=== PATIENT | male | born 1965 | race Two or more races ===

== ENCOUNTER 2018-03-19 01:12 | Emergency (ER) | payer SELFPAY ==
--- NOTE | 2018-03-19 02:29 | ER Document Report ---
ED Substance Abuse / Acc. OD - General Chief Complaint: Accidental Overdose Stated Complaint: POSSIBLE OVERDOSE Time Seen by Provider: 03/19/18 02:21 Primary Care Provider: [facility] [Provider Group] - Follow up tomorrow Notes: Patient is a 53-year-old male that comes to the emergency department for chief complaint of accidental overdose. He states that he was trying to go to sleep, he states he drank almost the entire bottle of NyQuil at 8 PM, he states that he slept soundly with multiple nightmares, awoke and felt "very strange and groggy", states that he was very shaky and he became concerned and was brought to the emergency department. He states he actually feels improved now. He denies abdominal pain, vomiting, headache, seizure, or any other symptoms. TRAVEL OUTSIDE OF THE [place] IN LAST 30 DAYS: No - Related Data Allergies/Adverse Reactions: No Known Allergies Allergy (Unverified 03/19/18 03:40) Past Medical History - General Information source: Patient - Social History Smoking Status: Never Smoker Frequency of alcohol use: Social Drug Abuse: None Lives with: Friend Family History: Reviewed & Not Pertinent - Medical History Medical History: Negative Surgical Hx: Negative - Immunizations Hx Diphtheria, Pertussis, Tetanus Vaccination: Yes Review of Systems - Review of Systems Constitutional: See HPI EENT: No symptoms reported Cardiovascular: No symptoms reported Respiratory: No symptoms reported Gastrointestinal: No symptoms reported Genitourinary: No symptoms reported Male Genitourinary: No symptoms reported Musculoskeletal: No symptoms reported Skin: No symptoms reported Hematologic/Lymphatic: No symptoms reported Neurological/Psychological: See HPI Physical Exam - Vital signs Vitals: Temp Pulse Resp BP Pulse Ox 98.1 F 79 14 210/100 H 99 03/19/18 01:32 03/19/18 01:32 03/19/18 01:32 03/19/18 01:32 03/19/18 01:32 - Notes Notes: GENERAL: Alert, interacts well. No acute distress. HEAD: Normocephalic, atraumatic. EYES: Pupils equal, round, and reactive to light. Extraocular movements intact. ENT: Oral mucosa moist, tongue midline. Oropharynx unremarkable. Airway patent. Nares patent, no nasal septal hematoma, TM's intact. NECK: Full range of motion. Supple. Trachea midline. LUNGS: Clear to auscultation bilaterally, no wheezes, rales, or rhonchi. No respiratory distress. HEART: Regular rate and rhythm. No murmur ABDOMEN: Soft, non-tender. Non-distended. Bowel sounds present in all 4 quadrants. GENITOURINARY: Deferred EXTREMITIES: Moves all 4 extremities spontaneously. No edema, normal radial and dorsalis pedis pulses bilaterally. No cyanosis. BACK: no cervical, thoracic, lumbar midline tenderness. No saddle anesthesia, normal distal neurovascular exam. NEUROLOGICAL: Alert and oriented x3. Normal speech. [cranial nerves II through XII grossly intact]. PSYCH: Normal affect, normal mood. SKIN: Warm, dry, normal turgor. No rashes or lesions noted. Course - Re-evaluation Re-evalutation: Called poison control and spoke with Xiao. She recommends that based on the dose (approximately an entire NyQuil bottle but slightly less), his vital signs (hypertension but no tachycardia, no fever), and the fact that he has already been 6 hours, she states that a single measurement of acetaminophen, salicylates is recommended but if this is not in the critical range is that patient can be safely discharged. Hypertension not felt to be from Benadryl because he does not have tachycardia, he is not flushed, he is not confused, and he is not shaking anymore. He currently denies any symptoms. EKG shows sinus rhythm with prolonged QTC at 535. No T wave inversions or ST segment changes in consecutive leads. Despite prolonged QTC the Q to Q interval appears unremarkable. I discussed with patient again, he still states he has no symptoms. Blood pressure slightly improved but still is significantly elevated. Otherwise unremarkable exam. Discussed with Dr. Grant. Because patient does not have critical levels, this has been 7 hours before the labs were drawn, and patient is currently asymptomatic based on his current workup we do not suspect that he has obtained toxic levels with his ingestion. Patient insists that he was just trying to sleep, discussed and the severe risk of taking higher doses of any medication, patient states that he has "learned his lesson", he denies SI or HI, his friend is at bedside. Also discussed his likely essential hypertension, patient will be started on hydrochlorothiazide for this, referred to primary ca re office, discussed close follow-up, discussed return precautions. Patient states understanding and agreement. Stable at time of discharge. - Vital Signs Vital signs: Temp Pulse Resp BP Pulse Ox 98.1 F 72 21 H 191/110 H 98 03/19/18 04:50 03/19/18 02:46 03/19/18 04:48 03/19/18 04:49 03/19/18 04:48 - Laboratory Result Diagrams: 03/19/18 03:20 03/19/18 03:20 Laboratory results interpreted by me: 03/19/18 03/19/18 03/19/18 03:08 03:20 03:20 RBC 4.07 L MCH 33.5 H Plt Count 98 L Glucose 157 H Direct Bilirubin 0.8 H AST 76 H ALT 125 H Alkaline Phosphatase 138 H Urine Glucose (UA) 50 H Urine Blood SMALL H Salicylates < 1.0 L Discharge - Discharge Clinical Impression: Essential hypertension Accidental overdose Qualifiers: Encounter type: initial encounter Qualified Code(s): T50.901A - Poisoning by unspecified drugs, medicaments and biological substances, accidental (unintentional), initial encounter Condition: Stable Disposition: HOME, SELF-CARE Additional Instructions: Do not take any more of the prescribed amount of any medication or if this could lead to or severe damage. Your blood pressure is too elevated. Take the hydrochlorothiazide medication daily, follow-up with the referral to have this managed in the office. Return for any concerning symptoms including vomiting, abdominal pain, severe headache, chest pain, or any other concerning or worsening symptoms. Prescriptions: Hydrochlorothiazide [Hydrodiuril 25 mg Tablet] 25 mg PO QAM #30 tablet Forms: Elevated Blood Pressure Referrals: [facility] [Provider Group] - Follow up tomorrow
[2018-03-19 03:21] LABS: APPEARANCE,URINE CLEAR; BILIRUBIN,URINE NEGATIVE (NEGATIVE); COLOR,URINE YELLOW; GLUCOSE, URINE 50 mg/dL (NEGATIVE); KETONES,URINE NEGATIVE (NEGATIVE); LEUKOCYTE ESTERASE,URINE NEGATIVE (NEGATIVE); NITRITE,URINE NEGATIVE (NEGATIVE); PROTEIN,URINE NEGATIVE (NEGATIVE); URINE SPECIFIC GRAVITY 1.009; UROBILINOGEN,URINE NEGATIVE mg/dL (<2.0)
[2018-03-19 03:36] LABS: ABSOLUTE LYMPHOCYTES (AUTO) 1.4 10^3/uL (0.5-4.7); ABSOLUTE MONOCYTES (AUTO) 0.6 10^3/uL (0.1-1.4); BASOPHILS % (AUTO) 0.4 % (0-2); EOSINOPHILS % (AUTO) 0.3 % (0-6); HEMOGLOBIN 13.6 g/dL (13.5-17.0); LYMPHOCYTES % (AUTO) 23.3 % (13-45); MEAN CORPUSCULAR HEMOGLOBIN 33.5 pg (27.0-33.4); MEAN CORPUSCULAR VOLUME 96 fl (80-97); MONOCYTES % (AUTO) 10.4 % (3-13); RED BLOOD COUNT 4.07 10^6/uL (4.35-5.55); RED CELL DISTRIBUTION WIDTH 13.5 % (11.5-14.0); SEGMENTED NEUTROPHILS % (AUTO) 65.6 % (42-78); TOTAL CELLS COUNTED % (AUTO) 100 %; WHITE BLOOD COUNT 6.2 10^3/uL (4.0-10.5)
[2018-03-19 03:52] LABS: PLATELET COUNT 98 10^3/uL (150-450)
[2018-03-19 03:55] LABS: ACETAMINOPHEN 28 ug/mL (10-30); ALANINE AMINOTRANSFERASE 125 U/L (21-72); ALKALINE PHOSPHATASE 138 U/L (38-126); ANION GAP 11 (5-19); ASPARTATE AMINO TRANSFERASE 76 U/L (17-59); BILIRUBIN,DIRECT 0.8 mg/dL (0.0-0.4); BILIRUBIN,TOTAL 1.3 mg/dL (0.2-1.3); BLOOD UREA NITROGEN 9 mg/dL (7-20); CALCIUM 9.5 mg/dL (8.4-10.2); CARBON DIOXIDE 28 mmol/L (22-30); CHLORIDE 104 mmol/L (98-107); GLUCOSE 157 mg/dL (75-110); POTASSIUM 4.1 mmol/L (3.6-5.0); SODIUM 142.5 mmol/L (137-145); TOTAL PROTEIN 6.9 g/dL (6.3-8.2)
[2018-03-19 03:56] LABS: ALCOHOL < 10 mg/dL (NONE DETECTED); SALICYLATE < 1.0 mg/dL (2.0-20.0)
[2018-03-19 04:03] LABS: URINE AMPHETAMINES SCREEN NEGATIVE; URINE BARBITURATES SCREEN NEGATIVE; URINE BENZODIAZEPINES SCREEN NEGATIVE; URINE COCAINE SCREEN NEGATIVE; URINE MARIJUANA (THC) SCREEN NEGATIVE; URINE METHADONE SCREEN NEGATIVE; URINE PHENCYCLIDINE SCREEN NEGATIVE
[2018-03-19 04:53] VITALS: BP 191/110
--- NOTE | 2018-03-19 07:36 | EKG REPORT ---
SEVERITY:- ABNORMAL ECG - SINUS RHYTHM PROLONGED QT INTERVAL NONSPECIFIC ST-T CHANGES ANTERIOR LEADS : Confirmed by: Raleigh Zarco MD 19-Mar-2018 07:35:21
== END 2018-03-19 04:52 | disposition home or self-care (01) ==
LOC: ER 01:12
DX: T50.991A Poisoning by other drugs, medicaments and biological substances, accidental (unintentional), initial encounter (principal); I10 Essential (primary) hypertension
CPT/HCPCS: 36415; 80053; 80307; 81001; 85025; 93005; 93010; 99284